=== PATIENT | female | born 1960 | race Two or more races ===

== ENCOUNTER 2021-12-22 13:13 | Emergency (ER) | payer MEDICAID, OTHER ==
[2021-12-22 14:03] LABS: Basophils # (auto) 0 10 ^3/uL (0-0.2); Basophils % (auto) 0.3 % (0.0-2.0); Eosinophils # (auto) 0 10 ^3/uL (0-0.8); Eosinophils % (auto) 0.3 % (0.0-7.0); Hematocrit 40.2 % (36.0-46.0); Hemoglobin 13.3 g/dL (12.2-16.2); Lymphocytes # (auto) 2.1 10 ^3/uL (0.4-5.4); Lymphocytes % (auto) 19.7 % (10.0-50.0); Mean Corpuscular Hemoglobin 28.6 pg (28.0-32.0); Mean Corpuscular Hgb Conc. 33.1 g/dL (32.0-36.0); Mean Corpuscular Volume 86.2 fL (80.0-100.0); Monocytes # (auto) 0.8 10 ^3/uL (0-1.3); Monocytes % (auto) 7.3 % (0.0-12.0); Neutrophils # (auto) 7.7 10 ^3/uL (1.6-8.6); Neutrophils % (auto) 72.4 % (37.0-80.0); Nucleated Red Blood Cells % 0.1 %; Red Blood Cells 4.66 10^6/uL (4.0-5.20); Red Cell Distribution Width 13.1 % (11.8-14.3); White Blood Cell 10.7 10^3/uL (4.4-10.8)
[2021-12-22 14:27] LABS: Albumin 3.1 g/dL (3.4-5.0); Calcium 8.4 mg/dL (8.5-10.1); Potassium 3.7 mmol/L (3.5-5.1)
[2021-12-22 14:30] LABS: BUN/Creatinine Ratio 21.4
[2021-12-22 14:32] LABS: Bilirubin, Total 0.6 mg/dL (0.2-1.0); Total Protein 7.1 g/dL (6.4-8.2)
[2021-12-22 14:34] LABS: Urine Bacteria NONE SEEN /hpf (None Seen); Urine Blood 3+ /uL (Negative); Urine Budding Yeast MANY /hpf (None Seen); Urine Mucus FEW (None Seen); Urine Specific Gravity 1.027 (1.001-1.035); Urine WBC 1356 /hpf (0 - 5); Urine WBC Clumps PRESENT /hpf (None Seen)
[2021-12-22] MEDS ORDERED: NITR-87 PO (14:55)
[2021-12-22] MEDS ORDERED: cefTRIAXone 1GM/50ML D5W 50 ML IV ONE (15:00)
[2021-12-22 17:51] VITALS: BP 141/62
== END 2021-12-22 17:51 | disposition home or self-care (01) ==
LOC: ER 13:13
DX: R07.89 Other chest pain (principal); N39.0 Urinary tract infection, site not specified; E11.9 Type 2 diabetes mellitus without complications; E44.1 Mild protein-calorie malnutrition; Z68.1 Body mass index [BMI] 19.9 or less, adult
CPT/HCPCS: 36415; 80053; 81001; 84484; 85025; 93005; 96365; 99284; J0696

== ENCOUNTER 2025-05-20 12:25 | Emergency (ER) | payer OTHER, MEDICAID ==
[~2025-05-20] VITALS: Ht 154.9 cm; Wt 99.2 kg
[~2025-05-20 12:25] MED LIST: NITR-87 PO
[2025-05-20 13:29] VITALS: BP 152/74; PULSE 102; RESP 20; TEMP 97.3; O2SAT 94
[2025-05-20] MEDS ORDERED: HYDR-4902 PO (13:42)
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
== END 2025-05-20 13:52 | disposition home or self-care (01) ==
LOC: ER 12:25
DX: R07.89 Other chest pain (principal); M54.6 Pain in thoracic spine; I10 Essential (primary) hypertension; E11.9 Type 2 diabetes mellitus without complications; Z76.0 Encounter for issue of repeat prescription; Z79.891 Long term (current) use of opiate analgesic